=== PATIENT | female | born 1985 | race Hispanic/Latino ===

== ENCOUNTER 2018-11-18 19:02 | Emergency (ER) | payer OTHER ==
[~2018-11-18] VITALS: Ht 160 cm; Wt 95.5 kg
[~2018-11-18 19:02] MED LIST: AMOXICILLIN500 MG PO; ATIVAN0.5 MG PO; CORTISPORIN OTI10 ML AD; LEVOTHYROXIN50 MCG PO; NO HOME MEDS; PRENATABS OR; PRILOSEC20 MG PO; ULTRAM50 M1 PO
[2018-11-18] MEDS ORDERED: ORPHENADRINE100 MG PO (20:49)
[2018-11-18] MEDS ORDERED: IBUPROFEN600 MG PO (20:49)
[2018-11-18] MEDS ORDERED: BUPROPION HCL150 MG PO (20:56)
[2018-11-18] MEDS ORDERED: FERROUS FUM324 MG PO (20:57)
[2018-11-18 21:00] VITALS: BP 119/74
== END 2018-11-18 21:00 | disposition home or self-care (01) | DRG 552 ==
LOC: ED 19:02
DX: S16.1XXA Strain of muscle, fascia and tendon at neck level, initial encounter (principal); S39.012A Strain of muscle, fascia and tendon of lower back, initial encounter; F17.210 Nicotine dependence, cigarettes, uncomplicated; V43.52XA Car driver injured in collision with other type car in traffic accident, initial encounter